=== PATIENT | male | born 1975 | race Caucasian/White ===

== ENCOUNTER 2020-03-25 05:15 | Emergency (ER) | payer BC, OTHER ==
[2020-03-25] MEDS ORDERED: Aspirin 81 MG Tab.Chew PO ONE (05:20)
[2020-03-25] MEDS ORDERED: Ketorolac 60 MG/2 ML SDV IM ONE (06:44)
--- NOTE | 2020-03-25 06:47 | EDM.PDOC ---
ED HPI GENERAL MEDICAL PROBLEM - General Chief Complaint: Chest Pain Time Seen by Provider: 03/25/20 06:43 Source of Information: Reports: Patient History Limitations: Reports: No Limitations - History of Present Illness INITIAL COMMENTS - FREE TEXT/NARRATIVE: Ron complains of Chest pain since . Left sided. No radiation.He [id number] a h/o HTN,and HLD. ? 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 left side chest and mid back Pain Score (Numeric/FACES): 6 - Related Data Allergies Allergy/AdvReac Type Severity Reaction Status Date / Time No Known Allergies Allergy Verified 07/05/16 16:57 Home Meds: Home Meds Hydrochlorothiazide 25 mg PO DAILY 04/13/13 [History] Isosorbide Mononitrate [Imdur] 60 mg PO DAILY 04/13/13 [History] Lisinopril 10 mg PO DAILY 04/13/13 [History] atorvaSTATin [Lipitor] 20 mg PO BEDTIME 12/04/15 [History] buPROPion HCL [Wellbutrin Xl] 300 mg PO DAILY 12/04/15 [History] rOPINIRole HCl [Requip] 0.75 mg PO BEDTIME 12/04/15 [History] Etodolac 400 mg PO DAILY 03/25/20 [History] Past Medical History - Past Health History Medical/Surgical History: Denies Medical/Surgical History HEENT History: Reports: Impaired Vision Cardiovascular History: Reports: Angina, CAD, Heart Murmur, High Cholesterol, Hypertension, Other (See Below) Other Cardiovascular History: some cardiac incident 20 years ago-doesn't know name, HYPERGLYCERIDEMIA , MURMUR IN PAST, mitral bicuspid bridging. Respiratory History: Reports: Sleep Apnea Other Respiratory History: has sleep apnea machine, uses it off & on. 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 Has hx drug & alcohol addiction, has been to tx for both in 1989. Endocrine/Metabolic History: Reports: Obesity/BMI 30+ Hematologic History: Reports: None Immunologic History: Reports: None Oncologic (Cancer) History: Reports: None Dermatologic History: Reports: None - Infectious Disease History Infectious Disease History: Reports: Chicken Pox - Past Surgical History Head Surgeries/Procedures: Reports: None HEENT Surgical History: Reports: Oral Surgery Cardiovascular Surgical History: Reports: Other (See Below) Musculoskeletal Surgical History: Reports: Carpal Tunnel, Other (See Below) Oncologic Surgical History: Reports: None Social & Family History - Family History Family Medical History: Noncontributory - Tobacco Use Smoking Status *Q: Former Smoker Used Tobacco, but Quit: Yes Month/Year Tobacco Last Used: 1999 - Caffeine Use Caffeine Use: Reports: Soda - Living Situation & Occupation Living situation: Reports: ED ROS GENERAL - Review of Systems Review Of Systems: Comprehensive ROS is negative, except as noted in HPI. ED EXAM, GENERAL - Physical Exam Exam: See Below Exam Limited By: No Limitations General Appearance: Alert, WD/WN, No Apparent Distress Ears: Normal External Exam, Normal Canal, Hearing Grossly Normal, Normal TMs Ear Exam: Bilateral Ear: Auricle Normal, Canal Normal, TM normal Nose: Normal Inspection, Normal Mucosa, No Blood Throat/Mouth: Normal Inspection, Normal Lips, Normal Teeth, Normal Gums, Normal Oropharynx, Normal Voice, No Airway Compromise Head: Atraumatic, Normocephalic Neck: Normal Inspection, Supple, Non-Tender, Full Range of Motion Respiratory/Chest: No Respiratory Distress, Lungs Clear, Normal Breath Sounds, No Accessory Muscle Use, Chest Non-Tender Cardiovascular: Normal Peripheral Pulses, Regular Rate, Rhythm, No Edema, No Gallop, No JVD, No Murmur, No Rub GI/Abdominal: Normal Bowel Sounds, Soft, Non-Tender, No Organomegaly, No Distention, No Abnormal Bruit, No Mass (Male) Exam: No Hernia, Normal Inspection, Normal Prostate, Circumcised Rectal (Males) Exam: Normal Exam, Normal Rectal Tone, Prostate Normal Back Exam: Normal Inspection, Full Range of Motion, NT Extremities: Normal Inspection, Normal Range of Motion, Non-Tender, Normal Capillary Refill, No Pedal Edema Neurological: Alert, Oriented, CN II-XII Intact, Normal Cognition, Normal Gait, Normal Reflexes, No Motor/Sensory Deficits Psychiatric: Normal Affect, Normal Mood Skin Exam: Warm, Dry, Intact, Normal Color, No Rash Lymphatic: No Adenopathy EKG INTERPRETATION Rhythm: NSR Course - Vital Signs Last Recorded V/S: Last Vital Signs Temp 97.8 F 03/25/20 05:15 Pulse 78 03/25/20 05:15 Resp 11 L 03/25/20 05:15 BP 108/68 03/25/20 05:15 Pulse Ox 97 03/25/20 05:15 - Orders/Labs/Meds Orders: Active Orders 24 hr Category Date Time Status EKG Documentation Completion [RC] ASDIRECTED Care 03/25/20 05:18 Active Chest 2V [CR] Stat Exams 03/25/20 06:11 Taken CBC WITH AUTO DIFF [HEME] Stat Lab 03/25/20 05:35 Received EKG 12 Lead [EK] Routine Ther 03/25/20 05:17 Ordered Labs: Laboratory Tests 03/25/20 03/25/20 03/25/20 Range/Units 05:35 05:35 05:35 D-Dimer, Quantitative 0.36 (0.0-0.59) mg/LFEU Sodium 137 (135-145) mmol/L Potassium 3.7 (3.5-5.3) mmol/L Chloride 100 (100-110) mmol/L Carbon Dioxide 26 (21-32) mmol/L BUN 14 (7-18) mg/dL Creatinine 0.9 (0.70-1.30) mg/dL Est Cr Clr Drug Dosing 101.47 mL/min Estimated GFR (MDRD) > 60 (>60) BUN/Creatinine Ratio 15.6 (9-20) Glucose 107 (80-116) mg/dL Calcium 8.6 (8.6-10.2) mg/dL Total Bilirubin 0.7 (0.1-1.3) mg/dL AST 21 (5-25) IU/L ALT 28 (12-36) U/L Alkaline Phosphatase 47 L (56-112) IU/L Troponin I 4.5 (4.0-60.3) pg/mL Total Protein 7.1 (6.0-8.0) g/dL Albumin 3.8 (3.5-5.2) g/dL Globulin 3.3 g/dL Albumin/Globulin Ratio 1.2 Meds: Medications Discontinued Medications Generic Name Dose Route Start Last Admin Trade Name Manoj PRN Reason Stop Dose Admin Aspirin 324 mg 03/25/20 05:20 03/25/20 05:19 Aspirin PO 03/25/20 05:21 324 mg ONETIME ONE Administration Departure - Departure Time of Disposition: 06:44 Disposition: Still A Patient 30 Condition: Good Clinical Impression: Atypical chest pain Referrals: PCP,None [Primary Care Provider] - Sepsis Event Note (ED) - Evaluation Sepsis Screening Result: No Definite Risk - Focused Exam Vital Signs: Vital Signs Temp Pulse Resp BP Pulse Ox 03/25/20 05:15 97.8 F 78 11 L 108/68 97 - Problem List & Annotations (1) Atypical chest pain SNOMED Code(s): 453832281 Code(s): R07.89 - OTHER CHEST PAIN Status: Acute Current Visit: Yes - Problem List Review Problem List Initiated/Reviewed/Updated: Yes - My Orders Last 24 Hours: My Active Orders 03/25/20 05:17 EKG 12 Lead [EK] Routine 03/25/20 05:18 EKG Documentation Completion [RC] ASDIRECTED 03/25/20 05:35 CBC WITH AUTO DIFF [HEME] Stat 03/25/20 06:11 Chest 2V [CR] Stat - Assessment/Plan Last 24 Hours: My Active Orders 03/25/20 05:17 EKG 12 Lead [EK] Routine 03/25/20 05:18 EKG Documentation Completion [RC] ASDIRECTED 03/25/20 05:35 CBC WITH AUTO DIFF [HEME] Stat 03/25/20 06:11 Chest 2V [CR] Stat Plan: I have reviewed his EKG,trop and CXR. Negative findins. I will give him ASA,Toradol and repeat Trop in 3 hrs.
[2020-03-25 08:01] VITALS: BP 108/67; PULSE 82
--- NOTE | 2020-03-25 10:24 | CR ---
INDICATION: Chest pain. CHEST TWO VIEWS: PA and lateral views of the chest 03/25/20 were compared with 07/05/16 and again revealed the heart to be normal in size and shape. Somewhat prominent AP diameter with slightly flattened diaphragm leads and mild hyperaeration suggest obstructive airway disease - correlate clinically. The aorta is only very minimally tortuous. Bridging hyperostotic changes are noted in the mid thoracic spine with a lesser degree of anterior hypertrophic changes in the lower thoracic spine. Pulmonary markings are similar to the previous examination without a definite active infiltrate or effusion. Overlying EKG leads are noted. Evidence of exogenous obesity is noted. IMPRESSION: 1. No acute process. 2. Exogenous obesity. 3. Possible obstructive airway disease - correlate clinically. 4. DJD spine. MTDD
== END 2020-03-25 07:45 | disposition still patient (30) ==
LOC: FB.ED 05:15
DX: R07.89 Other chest pain (principal); I25.10 Atherosclerotic heart disease of native coronary artery without angina pectoris; E78.00 Pure hypercholesterolemia, unspecified; I10 Essential (primary) hypertension; G25.81 Restless legs syndrome; E66.9 Obesity, unspecified; Z68.41 Body mass index [BMI] 40.0-44.9, adult; F41.9 Anxiety disorder, unspecified; F32.9 Major depressive disorder, single episode, unspecified; Z79.899 Other long term (current) drug therapy; Z87.891 Personal history of nicotine dependence
CPT/HCPCS: 36415; 71046; 80053; 84484; 85025; 85379; 93005; 96372; 99284; 99285-25; A9270-GY; J1885

== ENCOUNTER 2023-04-20 10:56 | Emergency (ER) | payer BC ==
[2023-04-20] MEDS ORDERED: Sodium Chloride 0.9% 10 ML Syringe FLUSH PRN (11:29)
[2023-04-20] MEDS ORDERED: Nitroglycerin 0.4 MG Tab.SL SL ONE (11:43)
[2023-04-20] MEDS ORDERED: Aspirin 81 MG Tab.Chew PO ONE (11:43)
[2023-04-20 11:57] LABS: BASOPHILS ABSOLUTE AUTO 0.1 x10-3/uL (0.0-0.3); EOSINOPHILS ABSOLUTE AUTO 0.2 x10-3/uL (0.0-0.6); EOSINOPHILS PERCENT AUTO 2.7 % (0.1-6.8); HEMATOCRIT 42.1 % (38.3-50.1); HEMOGLOBIN 14.4 g/dL (12.9-17.7); LYMPHOCYTES ABSOLUTE AUTO 1.4 x10-3/uL (0.5-4.5); LYMPHOCYTES PERCENT AUTO 22.9 % (15.8-45.3); MEAN CORPUSCULAR HEMOGLOBIN 29.2 pg (27.0-33.3); MEAN CORPUSCULAR HGB CONC 34.1 g/dL (28.7-35.3); MEAN CORPUSCULAR VOLUME 85.5 fL (80.8-98.7); MEAN PLATELET VOLUME 7.6 fL (6.7-11.0); MONOCYTES ABSOLUTE AUTO 0.4 x10-3/uL (0.0-1.2); MONOCYTES PERCENT AUTO 6.6 % (5.5-15.2); NEUTROPHILS ABSOLUTE AUTO 4.2 x10-3/uL (1.7-6.9); NEUTROPHILS PERCENT AUTO 66.8 % (40.3-71.8); PLATELET COUNT,PLT 274 x10(3)uL (117-477); RED BLOOD CELL COUNT 4.92 x10(6)uL (3.90-5.90); RED CELL DISTRIBUTION WIDTH 14.5 % (12.4-15.0); WHITE BLOOD CELL COUNT,WBC 6.3 x10-3/uL (3.2-10.1)
[2023-04-20 12:06] LABS: BLOOD UREA NITROGEN,BUN 10 mg/dL (7-18); BUN/CREATININE RATIO 12.5 (9-20); CALCIUM 9.3 mg/dL (8.6-10.2); CARBON DIOXIDE,CO2 27 mmol/L (21-32); CHLORIDE,CL 104 mmol/L (100-110); CREATININE 0.8 mg/dL (0.70-1.30); EST CRCL DRUG DOSING (CG) 110.47 mL/min; ESTIMATED GFR 108 mL/min (>60); GLUCOSE RANDOM 107 mg/dL (80-116); POTASSIUM,K 3.9 mmol/L (3.5-5.3); SODIUM,NA 140 mmol/L (135-145)
[2023-04-20 12:11] LABS: PROTHROMBIN TIME 10.3 sec (9.0-11.1); PTT,PARTIAL THROMBOPLSTIN TIME 27.1 SECONDS (24.4-33.2)
[2023-04-20 12:12] LABS: A/G RATIO 0.9; ALANINE AMINOTRANSFERASE,ALT 33 U/L (12-36); ALBUMIN 3.7 g/dL (3.5-5.2); ALKALINE PHOSPHATASE 66 IU/L (56-112); ASPARTATE AMNIOTRANSFERASE,AST 17 IU/L (5-25); BILIRUBIN TOTAL 0.4 mg/dL (0.1-1.3); PROTEIN TOTAL,TP 7.9 g/dL (6.0-8.0)
[2023-04-20] MEDS ORDERED: Ketorolac 30 MG/ML SDV IVPUSH ONE (12:15)
[2023-04-20 14:31] VITALS: BP 146/98; PULSE 86
== END 2023-04-20 13:30 | disposition home or self-care (01) ==
LOC: FB.ED 10:56
DX: R07.89 Other chest pain (principal); R06.00 Dyspnea, unspecified; I25.119 Atherosclerotic heart disease of native coronary artery with unspecified angina pectoris; I10 Essential (primary) hypertension; E78.00 Pure hypercholesterolemia, unspecified; K21.9 Gastro-esophageal reflux disease without esophagitis; M19.90 Unspecified osteoarthritis, unspecified site; E66.9 Obesity, unspecified; Z68.42 Body mass index [BMI] 45.0-49.9, adult; Z79.899 Other long term (current) drug therapy
CPT/HCPCS: 36415; 71045; 80053; 83735; 83880; 84484; 85025; 85379; 85610; 85730; 93005; 96374; 99285; A9270; J1885

== ENCOUNTER 2025-04-09 01:18 | Emergency (ER) | payer BC ==
[2025-04-09] MEDS ORDERED: Acetaminophen/oxyCODONE 325-5 MG Tab PO ONE (01:19)
[2025-04-09] MEDS ORDERED: Sodium Chloride 0.9% 10 ML Syringe FLUSH PRN (01:33)
[2025-04-09] MEDS: Ondansetron 4 MG/2 ML SDV IVPUSH ONE (01:41)
[2025-04-09] MEDS: HYDROmorphone 2 MG/ML SDV IVPUSH ONE (01:41)
[2025-04-09 01:48] LABS: BLOOD UREA NITROGEN,BUN 13 mg/dL (7-18); CARBON DIOXIDE,CO2 26 mmol/L (21-32); CHLORIDE,CL 104 mmol/L (100-110); CREATININE 0.8 mg/dL (0.70-1.30); EST CRCL DRUG DOSING (CG) 108.01 mL/min; ESTIMATED GFR 106 mL/min (>60); GLUCOSE RANDOM 126 mg/dL (80-116); POTASSIUM,K 3.2 mmol/L (3.5-5.3); SODIUM,NA 141 mmol/L (135-145)
[2025-04-09 01:51] LABS: BASOPHILS ABSOLUTE AUTO 0.1 x10-3/uL (0.0-0.3); BASOPHILS PERCENT AUTO 0.9 % (0.3-3.8); EOSINOPHILS ABSOLUTE AUTO 0.2 x10-3/uL (0.0-0.6); EOSINOPHILS PERCENT AUTO 2.6 % (0.1-6.8); LYMPHOCYTES ABSOLUTE AUTO 2.8 x10-3/uL (0.5-4.5); LYMPHOCYTES PERCENT AUTO 40.2 % (15.8-45.3); MEAN PLATELET VOLUME 8.7 fL (6.7-11.0); MONOCYTES ABSOLUTE AUTO 0.4 x10-3/uL (0.0-1.2); MONOCYTES PERCENT AUTO 5.8 % (5.5-15.2); NEUTROPHILS ABSOLUTE AUTO 3.5 x10-3/uL (1.7-6.9); NEUTROPHILS PERCENT AUTO 50.5 % (40.3-71.8); PLATELET COUNT,PLT 218 x10(3)uL (117-477); RED BLOOD CELL COUNT 4.52 x10(6)uL (3.90-5.90); RED CELL DISTRIBUTION WIDTH 15.8 % (12.4-15.0); WHITE BLOOD CELL COUNT,WBC 7.0 x10-3/uL (3.2-10.1)
[2025-04-09 01:54] LABS: A/G RATIO 1.2; ALANINE AMINOTRANSFERASE,ALT 82 U/L (12-36); ASPARTATE AMNIOTRANSFERASE,AST 44 IU/L (5-25); BILIRUBIN TOTAL 0.7 mg/dL (0.1-1.3); PROTEIN TOTAL,TP 7.1 g/dL (6.0-8.0)
[2025-04-09 02:44] LABS: GLUCOSE,URINE NORMAL (NORMAL); OCCULT BLOOD,URINE LARGE (NEGATIVE)
[2025-04-09 02:45] LABS: APPEARANCE,URINE CLOUDY (CLEAR)
[2025-04-09 02:49] VITALS: BP 142/78; PULSE 66
[2025-04-09 02:50] LABS: SQUAMOUS EPITHELIAL CELLS,UR FEW (NS,R,O)
== END 2025-04-09 02:50 | disposition home or self-care (01) ==
LOC: FB.ED 01:18
DX: N13.2 Hydronephrosis with renal and ureteral calculous obstruction (principal); E78.00 Pure hypercholesterolemia, unspecified; I25.10 Atherosclerotic heart disease of native coronary artery without angina pectoris; I10 Essential (primary) hypertension; K21.9 Gastro-esophageal reflux disease without esophagitis; Z79.899 Other long term (current) drug therapy
CPT/HCPCS: 36415; 74176; 80053; 81001; 85025; 96361; 96374; 96375; 99284; A9270; J1171; J2405; J7030